=== PATIENT | male | born 1970 | race Caucasian/White ===

== ENCOUNTER 2024-04-25 14:39 | Emergency (ER) | payer OTHER, SELFPAY ==
[2024-04-25] VITALS (16 sets, daily range): BP systolic 133–178; BP diastolic 85–101; PULSE 75–107; TEMP 37.2; O2SAT 96–99
--- NOTE | 2024-04-25 14:49 | ECG_ITS ---
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
--- NOTE | 2024-04-25 14:49 | ED.GENADUL1 ---
HPI HPI - General Adult General Chief complaint: Arrhythmia/Palpitations Stated complaint: FAST HEART RATE Time Seen by Provider: 04/25/24 14:40 Source: patient Mode of arrival: walk-in History of Present Illness HPI narrative: Patient is a 53-year-old male presents to the ER with concerns of palpitations and possible anxiety. Patient states for the past 4 to 5 days he has been doing a egg fat and cheese diet which can make you feel like shit , but 2 days ago was lifting weights when he felt pain in his mid upper back that caused him to be nauseous and slightly sweaty that pain then subsided and today he has some tingling in the left arm. He denies any chest pain or anterior abdominal pain patient states he felt anxious when discussing palpitations today and left arm tingling sensation since yesterday he ambulates without difficulty. Admits to daily alcohol use that is heavy and quit smoking 7 or 8 years ago after smoking for 30 years. He denies any chest pain or back pain discomfort currently Radiation: Reports back and extremity (left arm) Severity: mild Quality: Reports sharp ( pinch ) Pain Consistency: Reports intermittent Related Data Home Medications ?Medication ?Instructions ?Recorded ?Confirmed lisinopril 20 2 tab PO QAM 04/25/24 04/25/24 mg-hydrochlorothiazide 12.5 mg tablet Allergies Allergy/AdvReac Type Severity Reaction Status Date / Time No Known Drug Allergies Allergy Verified 04/25/24 14:48 Opioid HPI Opioid Management Most Recent Opioid Data: No Data to Display Review of Systems ROS Constitutional Denies: fever or chills Eyes Denies: change in vision or blurry vision Ears, nose, mouth, and throat Denies: throat pain, neck pain or ear discharge Cardiovascular Reports: palpitations; Denies: chest pain, edema, swelling of feet/ankles or lightheadedness Respiratory Reports: shortness of breath (random per pt. ); Denies: cough or wheezing Gastrointestinal Reports: nausea and diarrhea (Pt reports with [employer] today); Denies: abdominal pain, vomiting or difficulty swallowing Genitourinary Denies: painful urination Musculoskeletal Reports: back pain; Denies: neck pain, extremity pain or extremity swelling Integumentary/Breast Denies: rash or itching Neurological Reports: numbness in extremities ( sensation left upper extremity ); Denies: headache [facility] Medical History (Updated 04/25/24 @ 16:23 by LANRE Choe) HTN (hypertension) ?I10 - Essential (primary) hypertension (ICD-10) Exam Narrative Exam Narrative: Nurses notes and vital signs reviewed and patient is not hypoxic. General: The patient appears well but anxious. Patient is resting comfortably on cart. Skin: Warm, dry, no pallor noted. Head: Normocephalic, atraumatic Neck: Supple, trachea mid-line, no tenderness, no lymphadenopathy Eye: Pupils are equal, round and reactive to light, EOMI Ears, Nose, Mouth, and Throat: TM are clear, normal light reflex, oral mucosa is moist, no posterior oropharynx erythema or hypertrophy, uvula is mid-line Cardiovascular: Regular Rate and Rhythm Respiratory: Patient is in no distress, no accessory muscle use, lungs are clear to auscultation, no wheezing, rales or rhonchi. Chest Wall: no tenderness Back: non-tender, no CVA tenderness Musculoskeletal: normal ROM, no tenderness, no swelling GI: Normal bowel sounds, no tenderness to palpation, umbilical hernia, nontender. no masses appreciated. No rebound, guarding, or rigidity noted. 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 Psychiatric: Cooperative Constitutional Vital Signs, click to edit/add: Last Vital Signs Temp 98.9 F 04/25/24 14:42 Pulse 88 04/25/24 16:20 Resp 14 04/25/24 16:20 BP 142/85 H 04/25/24 16:00 Pulse Ox 99 04/25/24 16:20 O2 Del Method Room Air 04/25/24 14:42 Course Vital Signs Vital signs: Vital Signs Temperature 98.9 F 04/25/24 14:42 Pulse Rate 98 H 04/25/24 14:42 Respiratory Rate 18 04/25/24 14:42 Blood Pressure 178/101 H 04/25/24 14:42 Pulse Oximetry 99 04/25/24 14:42 Oxygen Delivery Method Room Air 04/25/24 14:42 Temperature 98.9 F 04/25/24 14:42 Pulse Rate 88 04/25/24 16:20 Respiratory Rate 14 04/25/24 16:20 Blood Pressure 142/85 H 04/25/24 16:00 Pulse Oximetry 99 04/25/24 16:20 Oxygen Delivery Method Room Air 04/25/24 14:42 Medical Decision Making MDM Narrative Medical decision making narrative: Patient presents with a myriad of symptoms over the past 48 hours initial onset of thoracic back discomfort while bench pressing 30 pound dumbbells then later that evening slight twist on the couch and noted pain with nausea and diaphoresis that abated after some time patient notes a sensation in the left upper extremity today and sensation of palpitations he denies any anterior chest pain or abdominal pain concerning risk factors is hypertension, patient reports compliance with medication, 30-year smoking history despite quitting for the last 7-8yrs patient also drinks alcohol daily in excess per patient and family at bedside. He denies any syncopal episodes and states no known family history of heart disease but he did have a grandfather that dropped without warning at work. We discussed his lifting with onset of symptoms he is agreeable to a CTA of the chest to rule out dissection or fracture he denies any abdominal pain he is currently with minimal to no symptoms but concerned with palpitations anxiety and a sensation in the left arm initial EKG reviewed without evidence of ST elevation. Discussed laboratory values, repeat troponin within normal limits patient's lipase is elevated possibly due to his alcohol abuse or change in diet discussed modifications and the need to follow-up with his family doctor for reevaluation if symptoms return or worsen he is to return to the ER immediately for reevaluation. Patient feeling better with rest at bedside and improvement in his blood pressure CT of the chest without evidence of fracture or dissection given his symptoms after lifting weights recommend gentle stretching The patient is to followup with primary care physician in next 3-5days or to return to the emergency department should any of the signs or symptoms worsen or new symptoms develop. Patient had questions answered. The patient agrees with the following Diagnosis and Treatment plan and the patient will be discharged home. Differential Diagnosis Differential Diagnosis: Aortic dissection, pancreatitis alcohol abuse, muscle strain, PA, anxiety Lab Data Labs: Lab Results 04/25/24 04/25/24 04/25/24 Range/Units 14:55 14:56 16:15 WBC 6.0 (4.0-11.0) 10^3/uL RBC 4.77 (4.70-6.10) 10^6/uL Hgb 15.5 (14.0-18.0) g/dL Hct 43.8 (42.0-54.0) % MCV 91.8 (80.0-94.0) fL MCH 32.5 (25.9-34.0) pg MCHC 35.4 H (29.9-35.2) g/dL RDW 12.6 (11.0-15.0) % Plt Count 216 (150-450) 10^3/uL MPV 10.5 (9.5-13.5) fL Neut % (Auto) 52.1 (43.0-75.0) % Lymph % (Auto) 35.4 (20.5-60.0) % [place] % (Auto) 9.5 (1.7-12.0) % Eos % (Auto) 2.0 (0.9-7.0) % Baso % (Auto) 0.7 (0.2-2.0) % Neut # (Auto) 3.1 (1.4-6.5) 10^3/uL Lymph # (Auto) 2.1 (1.2-3.8) 10^3/uL [place] # (Auto) 0.6 (0.3-0.8) 10^3/uL Eos # (Auto) 0.1 (0.0-0.7) 10^3/uL Baso # (Auto) 0.0 (0.0-0.1) 10^3/uL Abs Immat Gran (auto) 0.02 (0.00-0.03) 10^3/uL Imm/Tot Granulo (auto) 0.3 (0.0-0.5) % PT 11.0 (9.0-11.6) sec INR 1.04 APTT 24.6 (22.3-36.2) sec Sodium 139 (136-145) mmol/L Potassium 3.6 (3.5-5.1) mmol/L Chloride 101 (98-107) mmol/L Carbon Dioxide 29.0 (21.0-32.0) mmol/L Anion Gap 12.6 BUN 20.0 H (7.0-18.0) mg/dL Creatinine 1.06 (0.70-1.30) mg/dL Est GFR ( Amer) >60 (>=60 mL/min/1.73m^2) Est GFR (Non-Af Amer) >60 (>=60 mL/min/1.73m^2) BUN/Creatinine Ratio 18.9 Glucose 129 H (74-106) mg/dL Calcium 9.6 (8.5-10.1) mg/dL Total Bilirubin 0.3 (0.2-1.0) mg/dL AST 21 (15-37) U/L ALT 61 (16-63) U/L Alkaline Phosphatase 78 (46-116) U/L Troponin I High Sens 37.0 Finished Cloth Checker 32.7 (4.0-76.1) pg/mL Total Protein 7.8 (6.4-8.2) g/dL Albumin 4.4 (3.4-5.0) g/dL Globulin 3.4 g/dL Albumin/Globulin Ratio 1.3 Lipase 122.0 H (16.0-77.0) U/L Imaging Data CT scan - chest: Radiologist's impression: ITS Impressions Chest CTA 04/25/24 14:56 IMPRESSION: 1. No aortic aneurysm or dissection. 2. No pulmonary embolism. 3. No pulmonary infiltrates, pneumothorax, pleural effusion, or suspicious findings to account for patient's symptoms. Electronically authenticated by: KADY PERDOMO Date: 04/25/2024 15:29 ECG Data Attestation: I personally reviewed and interpreted this ECG as follows: Interpretation: EKG interpretation: Emergency Department physician interpretation, normal sinus rhythm, 98 bpm. no ectopy, no ST segment elevation, normal axis. Discharge Plan Discharge Chief Complaint: Arrhythmia/Palpitations Clinical Impression: Palpitations, Elevated lipase, Acute thoracic back pain Patient Disposition: Home, Self-Care Time of Disposition Decision: 16:40 Condition: Good Prescriptions / Home Meds: No Action lisinopril-hydrochlorothiazide 20-12.5 mg tablet 2 tab PO QAM Print Language: Citizen Of [place] Instructions: Heart Palpitations (ED), Thoracic Pain (ED) Additional Instructions: Follow up with Josafat Boland CNP in 3-5 days [phone] [place] [address] Recommend More bland diet with Elevated Lipase, avoid alcohol. Return to ER if symptoms return or worsen. Referrals: Physician,Non-Staff, MD [Primary Care Provider] - As soon as possible
--- NOTE | 2024-04-25 14:56 | CT_ITS ---
[address] [address] Patient Name: HYACINTH VIRAMONTES MRN: [id number] date: 1970 Sex: M Assigned Patient Location: ER Current Patient Location: Accession/Order Number: [id number] Exam Date: 04/25/2024 15:09 Report Date: 04/25/2024 15:29 At the request of: NGOZI CARRILLO Procedure: CT angio chest EXAMINATION: CT angio chest HISTORY: r/o dissection ; short of breath, tachycardia, sharp back pain, left arm tingling COMPARISON: No relevant comparison available. TECHNIQUE: Multi-planar CT images were created with IV contrast. Axial, Coronal, and Sagittal images. Dose reduction techniques were achieved by using automated exposure control and/or adjustment of mA and/or kV according to patient size and/or use of iterative reconstruction technique. 3-D reconstruction was performed on a separate workstation. FINDINGS: VASCULATURE: No pulmonary embolism or abnormal opacity. LUNGS: No visible pulmonary disease. Incidental calcified granuloma within posterior right lung base. PLEURA: No mass, effusion, or pneumothorax. JORDEN: Right hilar calcified lymph nodes compatible with chronic granulomatous disease. MEDIASTINUM: No mass or adenopathy. CARDIAC: No enlargement, pericardial effusion, or pericardial thickening. AORTA: No aneurysm or dissection. CHEST WALL: No mass or axillary adenopathy. BONES: No bone lesion or fracture. LIMITED ABDOMEN: No suspicious findings. Limited images of the upper abdomen. OTHER: Negative. CT/CT angio chest IMPRESSION: 1. No aortic aneurysm or dissection. 2. No pulmonary embolism. 3. No pulmonary infiltrates, pneumothorax, pleural effusion, or suspicious findings to account for patient's symptoms. Electronically authenticated by: KADY PERDOMO Date: 04/25/2024 15:29
[2024-04-25 15:10] LABS: Basophils Percent Auto 0.7 % (0.2-2.0); Eosinophils Absolute Auto 0.1 10^3/uL (0.0-0.7); Hematocrit 43.8 % (42.0-54.0); Hemoglobin 15.5 g/dL (14.0-18.0); Immature Granulocytes Abs Auto 0.02 10^3/uL (0.00-0.03); Immature Granulocytes Pct Auto 0.3 % (0.0-0.5); Lymphocytes Absolute Auto 2.1 10^3/uL (1.2-3.8); Lymphocytes Percent Auto 35.4 % (20.5-60.0); Mean Corpuscular HGB Conc 35.4 g/dL (29.9-35.2); Mean Corpuscular Hemoglobin 32.5 pg (25.9-34.0); Mean Corpuscular Volume 91.8 fL (80.0-94.0); Mean Platelet Volume 10.5 fL (9.5-13.5); Monocytes Absolute Auto 0.6 10^3/uL (0.3-0.8); Monocytes Percent Auto 9.5 % (1.7-12.0); Neutrophils Absolute Auto 3.1 10^3/uL (1.4-6.5); Neutrophils Percent Auto 52.1 % (43.0-75.0); Platelet Count 216 10^3/uL (150-450); Red Blood Count 4.77 10^6/uL (4.70-6.10); Red Cell Distribution Width 12.6 % (11.0-15.0)
[2024-04-25 15:25] LABS: Alanine Aminotransferase 61 U/L (16-63); Albumin Globulin Ratio 1.3; Albumin Level 4.4 g/dL (3.4-5.0); Alkaline Phosphatase 78 U/L (46-116); Anion Gap 12.6; Aspartate Amino Transferase 21 U/L (15-37); BUN Creatinine Ratio 18.9; Bilirubin Total 0.3 mg/dL (0.2-1.0); Calcium 9.6 mg/dL (8.5-10.1); Chloride 101 mmol/L (98-107); Estimated GFR (African America >60 (>=60 mL/min/1.73m^2); Estimated GFR (Non-African Ame >60 (>=60 mL/min/1.73m^2); Globulin 3.4 g/dL; Glucose 129 mg/dL (74-106); Potassium 3.6 mmol/L (3.5-5.1); Sodium 139 mmol/L (136-145); Total Protein 7.8 g/dL (6.4-8.2)
[2024-04-25 15:35] LABS: INR 1.04; Partial Thromboplastin Time 24.6 sec (22.3-36.2)
[2024-04-25 16:35] LABS: Troponin I High Sensitivity 32.7 pg/mL (4.0-76.1)
== END 2024-04-25 16:43 | disposition home or self-care (01) ==
PROVIDERS: Personal Emergency Response Attendant; Emergency Provider Emergency Medicine
DX: R00.2 Palpitations (principal); M54.6 Pain in thoracic spine; R79.89 Other specified abnormal findings of blood chemistry; Z87.891 Personal history of nicotine dependence; I10 Essential (primary) hypertension; F10.10 Alcohol abuse, uncomplicated
CPT/HCPCS: 36415; 71275; 80053; 83690; 84484; 85025; 85610; 85730; 93005; 99285; Q9967